=== PATIENT | male | born 1960 | race Caucasian/White ===

== ENCOUNTER → 2020-12-30 | Outpatient (CLI) | payer OTHER ==
--- NOTE | 2020-12-30 13:24 | RAD ---
EXAM: Maxillofacial bone CT without contrast. HISTORY: Sinusitis. TECHNIQUE: Computed tomographic images of the maximal facial bones were obtained without contrast. *One or more of the following individualized dose reduction techniques were utilized for this examina tion: 1. Automated exposure control. 2. Adjustment of the mA and/or kV according to patient size. 3. Use of iterative reconstruction technique. COMPARISON: None. FINDINGS: There is moderate bilateral ethmoid and mild bilateral maxillary sinus mucosal thickening. There are multiple right greater than left maxillary sinus mucous retention cysts. There is obstructi on of the bilateral ostiomeatal units. There is leftward nasal septal deviation. There is no sinus ai r-fluid level. There is no sinus wall erosion or thickening. There is evidence of lens surgery. There is a small amount of fluid the mastoid air cells. The tempor omandibular joints are intact. There is degenerative change involving the proximal cervical spine. No severe stenosis is seen. The visualized portions the brain demonstrate no mass effect or midline clark ft. IMPRESSION: 1. Moderate ethmoid and mild maxillary sinus mucosal thickening with maxillary sinus mucous retention cysts, resulting in obstruction of the ostiomeatal units. 2. Mild nasal septal deviation. Electronically signed by: Pina Sibley MD (12/30/2020 1:22 PM) [id number]
== END ==
LOC: CT 12:57
PROVIDERS: ATTEND Otolaryngology
DX: J34.1 Cyst and mucocele of nose and nasal sinus (principal); J34.2 Deviated nasal septum; J01.21 Acute recurrent ethmoidal sinusitis; Z68.31 Body mass index [BMI] 31.0-31.9, adult
CPT/HCPCS: 70486